=== PATIENT | female | born 1975 | race Caucasian/White ===

== ENCOUNTER 2020-01-02 14:20 | Outpatient (CLI) | payer OTHER, SELFPAY ==
--- NOTE | 2020-01-02 14:28 | MM_ITS ---
WS: [id number] RIGHT DIGITAL MAMMOGRAPHY WITH CAD CLINICAL INFORMATION: ABNORMAL MAMMOGRAM COMPARISON: May 22, 2019 TECHNIQUE: 4 views of the right breast were obtained. FINDINGS: The right breast is composed of heterogeneous fibroglandular density tissue, which can limit the dete ction of small underlying mass lesions. Biopsy clip subareolar right breast. No suspicious focal mass, asymmetry, calcifications, or architectural distortion. No evidence of serg gnancy. ULTRASOUND BREAST RIGHT TECHNIQUE: Ultrasound right breast focused area of concern. CLINICAL INFORMATION: ABNORMAL MAMMOGRAM FINDINGS: Ultrasound right breast at the areola. Hypoechoic area of prior biopsy measuring 7.7 x 3.4 x 5.6 mm. This is stable in appearance since the prior examination. Prior biopsy demonstrated benign breast tis woody. Recommend return to annual screening mammography in 6 months. MM/[place] [id number] IMPRESSION: BI-RADS: 2-Benign FOLLOW UP: 6 Month Follow-up Recommend return to annual screening mammography.
== END 2020-01-02 14:21 | disposition home or self-care (01) ==
LOC: RADSHAW 14:24
PROVIDERS: Visit Provider Obstetrics & Gynecology
DX: R92.8 Other abnormal and inconclusive findings on diagnostic imaging of breast (principal)
CPT/HCPCS: 76642; 77065

== ENCOUNTER 2020-06-09 14:33 | Outpatient (CLI) | payer OTHER, SELFPAY ==
--- NOTE | 2020-06-09 14:39 | MM_ITS ---
WS: [id number] BILATERAL DIGITAL SCREENING MAMMOGRAPHY WITH CAD CLINICAL INFORMATION: SCREENING HISTORY: Screening mammogram. No current complaints. COMPARISON: May 22, 2019 TECHNIQUE: Bilateral CC and MLO views. FINDINGS: Scattered fibroglandular densities bilaterally. No suspicious focal mass, asymmetry, calcifications, or architectural distortion. No evidence of malignancy. Biopsy clip right breast MM/[place] [id number] IMPRESSION: BI-RADS: 1-Negative FOLLOW UP: 1 Year Follow-up Recommend return to annual screening mammography.
== END 2020-06-09 14:34 | disposition home or self-care (01) ==
LOC: RADSHAW 14:36
PROVIDERS: PCP Obstetrics & Gynecology; Visit Provider Obstetrics & Gynecology
DX: Z12.31 Encounter for screening mammogram for malignant neoplasm of breast (principal)
CPT/HCPCS: 77067

== ENCOUNTER 2021-06-10 09:16 | Outpatient (CLI) | payer OTHER, SELFPAY ==
--- NOTE | 2021-06-10 09:19 | MM_ITS ---
WS: [id number] Bilateral screening digital mammogram, 06/10/2021 Clinical Data: SCREENING Comparison: 06/09/2020, 01/02/2020, 06/11/2019, 05/22/2019, 05/06/2018, 04/26/2017, 04/14/2016, 06/01/2015, 2013, 06/02/2013, 05/31/2012, 06/12/2011, 06/09/2010, 06/15/2009, 06/08/2009, 06/27/2007. Findings: The breast parenchymal pattern shows fibroglandular tissue. There is a mole marker on the right breas t. No spiculated masses or clustered calcifications are seen. There are no secondary signs of carcino ma. MM/[place] [id number] Impression: 1. Negative bilateral mammogram unchanged. 2. Recommend annual screening mammograms. BIRADS: 1-Negative FOLLOW UP: 1 Year Follow-up The CAD order checker packer processer was used.
== END 2021-06-10 09:17 | disposition home or self-care (01) ==
LOC: RADSHAW 09:18
PROVIDERS: Visit Provider Obstetrics & Gynecology
DX: Z12.31 Encounter for screening mammogram for malignant neoplasm of breast (principal)
CPT/HCPCS: 77067

== ENCOUNTER 2022-05-29 08:43 | Outpatient (CLI) | payer OTHER, SELFPAY ==
--- NOTE | 2022-05-29 09:03 | MM_ITS ---
WS: [id number] BILATERAL SCREENING DIGITAL BREAST TOMOSYNTHESIS MAMMOGRAM WITH CAD HISTORY: SCREENING COMPARISON: 06/10/2021, 06/09/2020 Bilateral CC and MLO views with tomosynthesis and synthetic mammography submitted. Computer aided det ection analyzed. Breast composition: The breasts are heterogeneously dense, which may obscure small masses. No suspici ous masses, microcalcifications or architectural distortion. MM/[place] [id number] IMPRESSION: BI-RADS: 1-Negative FOLLOW UP: 1 Year Follow-up
== END 2022-05-29 08:44 | disposition home or self-care (01) ==
LOC: RAD 08:44
PROVIDERS: Visit Provider Obstetrics & Gynecology
DX: Z12.31 Encounter for screening mammogram for malignant neoplasm of breast (principal)
CPT/HCPCS: 77063; 77067

== ENCOUNTER → 2022-06-08 15:31 | Outpatient (BNVA) | payer OTHER, SELFPAY | PROVIDERS: Visit Provider Obstetrics & Gynecology | DX: Z01.419 Encounter for gynecological examination (general) (routine) without abnormal findings (principal) | CPT/HCPCS: 87624 ==

== ENCOUNTER 2023-05-30 10:53 | Outpatient (CLI) | payer OTHER, SELFPAY ==
--- NOTE | 2023-05-30 11:00 | MM_ITS ---
WS: [id number] Bilateral screening 3D tomosynthesis digital mammogram, 05/30/2023 Clinical Data: SCREENING Comparison: 05/29/2022, 06/10/2021, 06/09/2020, 01/02/2020 06/11/2019, 05/22/2019, 05/06/2018, 04/26/2017, 2015, 06/01/2015, 05/29/2014, 06/02/2013, 05/31/2012, 06/12/2011, 06/09/2012, 06/15/2009, 06/08/2009, 06/27/2007. Findings: The breast parenchymal pattern shows heterogeneous density. No spiculated masses or clustered calcifi cations are seen. There are no secondary signs of carcinoma. MM/[place] [id number] Impression: 1. Negative bilateral mammogram unchanged. 2. Recommend annual screening mammograms. BIRADS: 1-Negative FOLLOW UP: 1 Year Follow-up The CAD typing checker was used.
== END 2023-05-30 10:54 | disposition home or self-care (01) ==
PROVIDERS: PCP Physician Assistant; Visit Provider Obstetrics & Gynecology
DX: Z12.31 Encounter for screening mammogram for malignant neoplasm of breast (principal)
CPT/HCPCS: 77063; 77067

== ENCOUNTER → 2024-01-21 15:21 | Outpatient (BNVA) | payer OTHER, SELFPAY | PROVIDERS: PCP Physician Assistant; Visit Provider Dermatology | DX: T78.3XXA Angioneurotic edema, initial encounter (principal); D48.5 Neoplasm of uncertain behavior of skin; L81.4 Other melanin hyperpigmentation; D22.39 Melanocytic nevi of other parts of face | CPT/HCPCS: 11102; 40490; 99203 ==

== ENCOUNTER → 2024-02-18 15:16 | Outpatient (BNVA) | payer OTHER, SELFPAY | PROVIDERS: PCP Physician Assistant; Visit Provider Dermatology | DX: K13.0 Diseases of lips (principal) | CPT/HCPCS: 99214 ==

== ENCOUNTER → 2024-03-27 13:33 | Outpatient (BNVA) | payer OTHER, SELFPAY | PROVIDERS: PCP Physician Assistant; Visit Provider Dermatology | DX: K13.0 Diseases of lips (principal); L91.8 Other hypertrophic disorders of the skin | CPT/HCPCS: 11200; 11900 ==

== ENCOUNTER 2024-06-05 11:20 | Outpatient (CLI) | payer OTHER, SELFPAY ==
--- NOTE | 2024-06-05 11:32 | MM_ITS ---
WS: [id number] BILATERAL SCREENING DIGITAL TOMOSYNTHESIS MAMMOGRAM WITH CAD HISTORY: SCREENING COMPARISON: 05/30/2023, 05/29/2022 Bilateral CC and MLO views with tomosynthesis and synthetic mammography submitted. Computer aided det ection analyzed. Breast composition: There are scattered areas of fibroglandular density. No suspicious masses, microc alcifications or architectural distortion. Ribbon-shaped biopsy clip in the anterior RIGHT breast. MM/[place] [id number] IMPRESSION: BI-RADS: 2-Benign FOLLOW UP: 1 Year Follow-up
== END 2024-06-05 11:21 | disposition home or self-care (01) ==
LOC: RAD 11:20
PROVIDERS: PCP Physician Assistant; Visit Provider Physician Assistant
DX: Z12.31 Encounter for screening mammogram for malignant neoplasm of breast (principal)
CPT/HCPCS: 77063; 77067

== ENCOUNTER 2025-06-09 11:15 | Outpatient (CLI) | payer OTHER, SELFPAY ==
--- NOTE | 2025-06-09 11:21 | MM_ITS ---
WS: [id number] BILATERAL 3D TOMOSYNTHESIS DIGITAL SCREENING MAMMOGRAPHY WITH CAD CLINICAL INFORMATION: SCREENING HISTORY: Screening mammogram. No current complaints. COMPARISON: 2023 TECHNIQUE: Bilateral CC and MLO views. FINDINGS: Scattered fibroglandular densities bilaterally. No suspicious focal mass, asymmetry, calcifications, or architectural distortion. No evidence of malignancy. Biopsy clip RIGHT breast MM/MM scr BI tomosynthesis [id number] IMPRESSION: DENSITY: There are scattered areas of fibroglandular density. BI-RADS: 2 - Benign. FOLLOW UP: 1 Year Follow-up Recommend return to annual screening mammography.
== END 2025-06-09 11:16 | disposition home or self-care (01) ==
LOC: RAD 11:17
PROVIDERS: PCP Physician Assistant; Visit Provider Physician Assistant
DX: Z12.31 Encounter for screening mammogram for malignant neoplasm of breast (principal)
CPT/HCPCS: 77063; 77067